=== PATIENT | female | born 1985 | race Caucasian/White ===

== ENCOUNTER 2024-10-08 16:31 | Emergency (ER) | payer OTHER ==
[~2024-10-08] VITALS: Ht 157.5 cm; Wt 54.5 kg
[2024-10-08 16:35] VITALS: BP 101/60; PULSE 73; RESP 18; TEMP 97.9; O2SAT 100
[2024-10-08] MEDS ORDERED: CETI-432 PO (16:39)
[2024-10-08] MEDS: IBUPROFEN 800 MG TABLET PO ONE (17:20)
[2024-10-08] MEDS: PERTUSS(ACELL),DIPH,TET/PF 0.5 ML SYRINGE [ADULT] IM. ONE (19:37)
[2024-10-08] MEDS: BACITRACIN 0.9 GM PACKET OINTMENT TP ONE (19:37)
[2024-10-08] MEDS ORDERED: IBUP-1493 PO (20:23)
== END 2024-10-08 20:44 | disposition home or self-care (01) ==
LOC: EMS 16:31
DX: S63.501A Unspecified sprain of right wrist, initial encounter (principal); Z79.899 Other long term (current) drug therapy; W01.0XXA Fall on same level from slipping, tripping and stumbling without subsequent striking against object, initial encounter; Y93.89 Activity, other specified; Y92.89 Other specified places as the place of occurrence of the external cause; Y99.8 Other external cause status
CPT/HCPCS: 99283